=== PATIENT | male | born 1995 | race Caucasian/White ===

== ENCOUNTER 2021-04-13 17:01 | Emergency (ER) | payer BC ==
[2021-04-13] MEDS ORDERED: predniSONE 20 MG TAB ONE (17:34)
== END 2021-04-13 17:36 | disposition home or self-care (01) ==
LOC: NAV ERS 17:01
DX: U07.1 COVID-19 (principal); R00.0 Tachycardia, unspecified; R11.0 Nausea
CPT/HCPCS: 99283; J7512